=== PATIENT | male | born 1985 | race Hispanic/Latino ===

== ENCOUNTER 2023-06-20 12:53 | Emergency (ER) | payer BC, SELFPAY ==
[2023-06-20] MEDS ORDERED: Bacitracin 1 PK ONE (13:34)
[2023-06-20] MEDS ORDERED: Boostrix 0.5 ML (Tdap) VIAL (>/=7 yrs of age) ONE (13:34)
[2023-06-20] MEDS ORDERED: Lidocaine 1% (PF) 30 ML VIAL ONE (13:34)
[2023-06-20] MEDS ORDERED: Cephalexin 500 MG CAP ONE (13:34)
== END 2023-06-20 14:45 | disposition home or self-care (01) ==
LOC: MADERS 12:53
DX: S62.631A Displaced fracture of distal phalanx of left index finger, initial encounter for closed fracture (principal); S62.633A Displaced fracture of distal phalanx of left middle finger, initial encounter for closed fracture; Z23 Encounter for immunization; W21.89XA Striking against or struck by other sports equipment, initial encounter; Y93.89 Activity, other specified
CPT/HCPCS: 64450; 90471; 90715; J2001